=== PATIENT | female | born 1945 | race Caucasian/White ===

== ENCOUNTER 2024-02-15 10:05 | Outpatient (CLI) | payer MEDICARE, BC | END 2024-02-15 10:06 | disposition home or self-care (01) | LOC: CSHMAMMO 10:05 | PROVIDERS: ATTEND Family Medicine | DX: Z12.31 Encounter for screening mammogram for malignant neoplasm of breast (principal); Z80.3 Family history of malignant neoplasm of breast; Z91.89 Other specified personal risk factors, not elsewhere classified | CPT/HCPCS: 77063; 77067 ==